=== PATIENT | male | born 1985 | race Caucasian/White ===

== ENCOUNTER 2017-04-03 09:33 | Emergency (ER) | payer BC ==
[2017-04-03] MEDS ORDERED: Sodium Chloride 0.9% 1000 ML 1,000 ML IV STA (09:47)
--- NOTE | 2017-04-03 09:52 | ERPHSYRPT ---
- History of Present Illness Time Seen by Provider: 04/03/17 09:42 Source: patient, family Patient Subjective Stated Complaint: PT REPORTS HAVING TONSILS OUT ON WEDNESDAY- STATES THAT THIS AM HE HAD AN INCREASE INPAIN-SPIT BRIGHT RED BLOOD SHELIA 1 HR AGO -STATES HE HAS NOT NOTICED BLOOD SINCE THEN-PAIN SUBSIDED AFTER THE BLOOD Triage Nursing Assessment: PT PINK WARM ET [id number] SOFTLY WITH EASY SPEACH-RESP NONLABORED-THROAT REDDENED Physician History: CC: post tonsil bleeding Hx: 31 y/o healthy man had tonsillectomy per Dr Colindres on Wednesday (5 days ago). He was doing ok. This AM he had a large amount of mucous and some bleeding. Called office and was told to come to ER. He has normal pain in throat from surgery. Able to speak but it hurts. No hx of bleeding problems and no blood thinners. He has no fever. Initial blood was in mucous, then some fresh blood, no current active bleeding. Timing/Duration: abrupt onset (this AM) Severity: mild Allergies/Adverse Reactions: No Known Drug Allergies Allergy (Verified 04/03/17 09:43) Home Medications: No Home Meds 1 ea UD 07/14/16 [History] Hx Tetanus, Diphtheria Vaccination/Date Given: No Hx Influenza Vaccination/Date Given: No Hx Pneumococcal Vaccination/Date Given: No Immunizations Up to Date: Yes - Review of Systems Constitutional: No Fever, No Chills Ears, Nose, & Throat: Throat Pain Respiratory: No Dyspnea Cardiac: No Chest Pain Abdominal/Gastrointestinal: No Abdominal Pain, No Nausea, No Vomiting All Other Systems: Reviewed and Negative - Past Medical History Pertinent Past Medical History: No Respiratory History: Sleep Apnea - Past Surgical History Past Surgical History: Yes - Social History Smoking Status: Never smoker Exposure to second hand smoke: No Drug Use: none 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) - Nursing Vital Signs Nursing Vital Signs: Initial Vital Signs Temperature 97.6 F Temperature Source Oral Pulse Rate 71 Respiratory Rate 20 Blood Pressure [Right Arm] 132/85 Pain Intensity 2 - Physical Exam General Appearance: alert, obese, other (pleasant man, breathing easily) Eye Exam: bilateral eye: PERRL, EOMI Neck Exam: normal inspection, non-tender, supple Cardiovascular/Respiratory Exam: regular rate/rhythm Abdominal Exam: non-tender, soft Neurologic Exam: alert, oriented x 3, cooperative Skin Exam: warm, dry, No rash SpO2 Interpretation: normal SpO2: 97 Oxygen Delivery: Room Air Comments: O-P: large tongue. Able to see tonsil beds. There is fresh blood with clot on right. No current active bleeding. Airway intact. 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 IV 04/03/17 11:07 20 mg STAT ONE Administration Dexamethasone Sodium Phosphate Confirm 04/03/17 11:08 Decadron 10mg Inj. Administered 04/03/17 11:09 Dose 10 mg .ROUTE .STK-MED ONE Hydromorphone HCl 0.5 mg 04/03/17 10:08 04/03/17 10:57 Hydromorphone 1 Mg/Ml Ampule IV 04/03/17 10:09 0.5 mg STAT ONE Administration Hydromorphone HCl Confirm 04/03/17 10:19 Hydromorphone 1 Mg/Ml Ampule Administered 04/03/17 10:20 Dose 1 mg .ROUTE .STK-MED ONE Hydromorphone HCl Confirm 04/03/17 10:54 Hydromorphone 1 Mg/Ml Ampule Administered 04/03/17 10:55 Dose 1 mg .ROUTE .STK-MED ONE Sodium Chloride 1,000 mls @ 999 mls/hr 04/03/17 09:47 04/03/17 10:07 Sodium Chloride 0.9% 1000 Ml IV 04/03/17 10:47 999 mls/hr .Q1H1M STA Administration Sodium Chloride Confirm 04/03/17 10:02 Sodium Chloride 0.9% 1000 Ml Administered 04/03/17 10:03 Dose 1,000 mls @ .[facility] Lab/Rad Data: Laboratory Result Diagrams 04/03/17 09:58 04/03/17 09:58 Laboratory Results 04/03/17 04/03/17 04/03/17 Range/Units 09:58 09:58 09:58 WBC (4.0-10.5) K/mm3 RBC (4.1-5.6) M/mm3 Hgb (12.5-18.0) gm/dl Hct (42-50) % MCV (78-100) fl MCH (26-32) pg MCHC (32-36) g/dl RDW (11.5-14.0) % Plt Count (150-450) K/mm3 MPV (6-9.5) fl Gran % (36.0-66.0) % Lymphocytes % (24.0-44.0) % Monocytes % (0.0-12.0) % Eosinophils % (0.00-5.0) % Basophils % (0.0-0.4) % Basophils # (0-0.4) INR 1.18 (0.8-3.0) APTT 27.8 (24.1-36.1) SECONDS Sodium 139 (136-145) mEq/L Potassium 3.7 (3.5-5.1) mEq/L Chloride 103 (98-107) mEq/L Carbon Dioxide 26.6 (21-32) mEq/L Anion Gap 13.2 (5-15) MEQ/L BUN 20 (9-20) mg/dL Creatinine 1.02 (0.55-1.30) mg/dl Estimated GFR > 60 ML/MIN Glucose 100 (70-110) MG/DL Calcium 9.7 (8.5-10.1) mg/dL ABO Group O Rh Factor POSITIVE Antibody Screen NEGATIVE (NEGATIVE) 04/03/17 Range/Units 09:58 WBC 16.1 H (4.0-10.5) K/mm3 RBC 5.72 H (4.1-5.6) M/mm3 Hgb 16.8 (12.5-18.0) gm/dl Hct 48.5 (42-50) % MCV 84.8 (78-100) fl MCH 29.3 (26-32) pg MCHC 34.6 (32-36) g/dl RDW 14.1 H (11.5-14.0) % Plt Count 333 (150-450) K/mm3 MPV 10.6 H (6-9.5) fl Gran % 75.7 H (36.0-66.0) % Lymphocytes % 14.8 L (24.0-44.0) % Monocytes % 8.8 (0.0-12.0) % Eosinophils % 0.6 (0.00-5.0) % Basophils % 0.1 (0.0-0.4) % Basophils # 0.02 (0-0.4) INR (0.8-3.0) APTT (24.1-36.1) SECONDS Sodium (136-145) mEq/L Potassium (3.5-5.1) mEq/L Chloride (98-107) mEq/L Carbon Dioxide (21-32) mEq/L Anion Gap (5-15) MEQ/L BUN (9-20) mg/dL Creatinine (0.55-1.30) mg/dl Estimated GFR ML/MIN Glucose (70-110) MG/DL Calcium (8.5-10.1) mg/dL ABO Group Rh Factor Antibody Screen (NEGATIVE) - Progress Progress Note: 04/03/17 10:09 18 ga PIUV placed right AC X 1 stick. Clayton faint when saw blood. Better lying flat. IVF bolus started. Vitals wnl. No active bleeding in o-p. 04/03/17 10:[address] Colindres thru office shop and alteration tailor number. 04/03/17 11:13 Pt has some blood tinged mucous but no active bleeding. Spoke to Dr Foster May covering for Dr Colindres. He advised IV decadron 20, ice water. Release home. If return of active bleeding pt will need to go to [facility] for ENT work. Pt and understand and agree. 04/03/17 12:29 A little blood from nose (he had septoplasty). No O-P bleeding. No clots or active bleeding on visual exam of throat. Drinking ice water. Will release with instructions. Counseled pt/family regarding: lab results, diagnosis, need for follow-up - Departure Time of Disposition: 12:29 Departure Disposition: Home Clinical Impression: post tonsillectomy bleeding Condition: Stable Critical Care Time: No Referrals: BEBE BATRES [Primary Care Provider] - Ozzie COLINDRES [NON-STAFF PHY W/O PRIVILEGES] - Instructions: Tonsillectomy Additional Instructions: Sip ice water this weekend. If bleeding returns go call Dr Colindres or go to [facility]. Return for problems or concerns. Call Dr Colindres office Wednesday with report.
[2017-04-03] MEDS ORDERED: Sodium Chloride 0.9% 1000 ML 1,000 ML ONE (10:02)
[2017-04-03] MEDS ORDERED: Hydromorphone 1 mg/ml Ampule IV ONE (10:08)
[2017-04-03] MEDS ORDERED: Hydromorphone 1 mg/ml Ampule ONE ×2 (10:19→10:54)
[2017-04-03 10:20] LABS: BASOPHIL % 0.1 % (0.0-0.4); Eosinophil % 0.6 % (0.00-5.0); Granulocytes % 75.7 % (36.0-66.0); Lymphocytes % 14.8 % (24.0-44.0); Mean Cell Volume 84.8 fl (78-100); Mean Platelet Volume 10.6 fl (6-9.5); Monocytes % 8.8 % (0.0-12.0); Platelet Count 333 K/mm3 (150-450); Red Blood Count 5.72 M/mm3 (4.1-5.6); Red Cell Distribution Width 14.1 % (11.5-14.0); White Blood Count 16.1 K/mm3 (4.0-10.5)
[2017-04-03 10:22] LABS: Mean Corpuscular Hemoglobin 29.3 pg (26-32)
[2017-04-03 10:31] LABS: INR 1.18 (0.8-3.0); PROTIME 13.1 SECONDS (8.83-12.87)
[2017-04-03 10:34] LABS: ANION GAP 13.2 MEQ/L (5-15); BLOOD UREA NITROGEN 20 mg/dL (9-20); CHLORIDE 103 mEq/L (98-107); Carbon Dioxide 26.6 mEq/L (21-32); Glucose 100 MG/DL (70-110); PTT 27.8 SECONDS (24.1-36.1); Potassium 3.7 mEq/L (3.5-5.1); SODIUM 139 mEq/L (136-145)
[2017-04-03 11:04] VITALS: BP 132/85; PULSE 71
[2017-04-03 11:06] VITALS: O2SAT 97
[2017-04-03] MEDS ORDERED: DECADRON 10MG INJ. IV ONE (11:06)
[2017-04-03] MEDS ORDERED: DECADRON 10MG INJ. ONE (11:08)
== END 2017-04-03 12:51 | disposition home or self-care (01) ==
LOC: ED 09:33
DX: K91.840 Postprocedural hemorrhage of a digestive system organ or structure following a digestive system procedure (principal)
CPT/HCPCS: 36000; 36415; 80048; 85025; 85610; 85730; 86850; 86900; 86901; 93041; 96360; 96374; 96375; 99284; J1100; J1170